=== PATIENT | female | born 1995 | race Hispanic/Latino ===

== ENCOUNTER 2018-01-17 09:56 | Emergency (ER) | payer BC ==
[~2018-01-17 09:56] MED LIST: ESOM20CA31 PO; IBUP-1673 PO
[2018-01-17] MEDS ORDERED: FAMOTIDINE 20MG TAB 20 MG TAB ONE (10:51)
[2018-01-17 11:02] LABS: BASOPHILS % (AUTO) 0.5 % (0.0-5.0); EOSINOPHILS % (AUTO) 0.9 % (0.0-8.0); HEMATOCRIT 35.4 % (36-48); LYMPHOCYTES % (AUTO) 25.4 % (21.0-51.0); MEAN CORPUSCULAR HEMOGLOBIN 29.6 pg (27.0-33.0); MEAN CORPUSCULAR HGB CONC 34.2 g/dL (32.0-36.0); MEAN CORPUSCULAR VOLUME 86.3 fL (79-99); MONOCYTES % (AUTO) 6.1 % (3.0-13.0); NEUTROPHILS % (AUTO) 67.1 % (40.0-77.0); PLATELET COUNT (AUTO) 194 K/uL (130-400); RED CELL DISTRIBUTION WIDTH 13.8 % (11.0-15.5); WHITE BLOOD COUNT (AUTO) 4.8 K/uL (4.8-10.8)
[2018-01-17 11:13] LABS: APPEARANCE,URINE Clear (CLEAR); BILIRUBIN,URINE Negative (NEGATIVE); COLOR,URINE Yellow (YELLOW); GLUCOSE, URINE (UA) Negative (NEGATIVE); KETONES,URINE Negative (NEGATIVE); LEUKOCYTE ESTERASE ,URINE Negative (NEGATIVE); NITRATE,URINE Negative (NEGATIVE); OCCULT BLOOD,URINE Negative (NEGATIVE); PROTEIN,URINE Negative (NEGATIVE)
[2018-01-17 11:17] LABS: CREATININE 0.7 mg/dL (0.5-1.5); POTASSIUM 4.4 mmol/L (3.5-5.1)
[2018-01-17 11:21] LABS: ALBUMIN 3.7 g/dL (3.5-5.0); BILIRUBIN,DIRECT 0.3 mg/dL (0.0-0.3); BILIRUBIN,TOTAL 1.3 mg/dL (0.2-1.0); TOTAL PROTEIN, SERUM 7.1 g/dL (6.0-8.3)
== END 2018-01-17 12:09 | disposition home or self-care (01) ==
LOC: EDH 09:56
DX: O26.891 Other specified pregnancy related conditions, first trimester (principal); R10.13 Epigastric pain; K21.9 Gastro-esophageal reflux disease without esophagitis; Z3A.01 Less than 8 weeks gestation of pregnancy; Z88.1 Allergy status to other antibiotic agents
CPT/HCPCS: 36415; 80048; 80076; 81003; 85025; 86677

== ENCOUNTER 2018-06-27 13:40 | Emergency (ER) | payer BC, MEDICAID ==
[~2018-06-27 13:40] MED LIST changes: +PREN1TAB89 PO
== END 2018-06-27 14:42 | disposition home or self-care (01) ==
LOC: EDH 13:40
DX: G89.29 Other chronic pain (principal); H92.03 Otalgia, bilateral; K21.9 Gastro-esophageal reflux disease without esophagitis; F41.9 Anxiety disorder, unspecified; Z88.1 Allergy status to other antibiotic agents; Z98.890 Other specified postprocedural states
CPT/HCPCS: 99281

== ENCOUNTER 2018-08-25 23:48 | Emergency (ER) | payer BC, MEDICAID ==
[~2018-08-25 23:48] MED LIST changes: -ESOM20CA31 PO; -IBUP-1673 PO
[2018-08-26] MEDS ORDERED: HYDROCODONE/ACETAMINOPHEN 5/325 MG TAB ONE (01:51)
[2018-08-26] MEDS ORDERED: CLINDAMYCIN HCL 150 MG CAP ONE (02:00)
== END 2018-08-26 03:13 | disposition home or self-care (01) ==
LOC: EDH 23:48
DX: Z48.01 Encounter for change or removal of surgical wound dressing (principal); K21.9 Gastro-esophageal reflux disease without esophagitis; Z98.890 Other specified postprocedural states; Z88.1 Allergy status to other antibiotic agents

== ENCOUNTER 2019-07-01 15:20 | Emergency (ER) | payer BC | END 2019-07-01 17:33 | disposition home or self-care (01) | LOC: EDH 15:20 | DX: R42 Dizziness and giddiness (principal); R51 Headache; K21.9 Gastro-esophageal reflux disease without esophagitis; F41.9 Anxiety disorder, unspecified; Z88.1 Allergy status to other antibiotic agents | CPT/HCPCS: 99281 ==

== ENCOUNTER → 2019-10-08 | Outpatient (CLI) | payer BC | END | disposition home or self-care (01) | LOC: RAH 12:38 | PROVIDERS: ATTEND Internal Medicine | DX: R51 Headache (principal) | CPT/HCPCS: 70551 ==

== ENCOUNTER → 2022-06-22 | Outpatient (CLI) | payer BC, OTHER, SELFPAY | END | disposition home or self-care (01) | LOC: RAH 08:57 | PROVIDERS: ATTEND Internal Medicine | DX: R10.13 Epigastric pain (principal); K21.9 Gastro-esophageal reflux disease without esophagitis; R11.2 Nausea with vomiting, unspecified | CPT/HCPCS: 74240 ==

== ENCOUNTER 2024-07-24 02:20 | Emergency (ER) | payer OTHER, SELFPAY ==
[~2024-07-24] VITALS: Ht 152.4 cm; Wt 52.6 kg
[2024-07-24] MEDS: MAG/ALUM/SIMETH 30 ML UDCUP PO ONE (02:56)
[2024-07-24] MEDS: morPHINE 4 MG SYG IVP ONE (02:57)
[2024-07-24] MEDS: DICYCLOMINE HCL 10 MG/5 ML ML PO ONE (02:57)
[2024-07-24] MEDS: LIDOCAINE HCL 2% VISCOUS 15 ML UDCUP PO ONE (02:57)
[2024-07-24] MEDS: LACTATED RINGERS 1000ML 1,000 ML IV ONE (02:57)
[2024-07-24] MEDS: ondanSETRON 4MG INJ IVP ONE (02:57)
[2024-07-24 03:05] VITALS: TEMP 97.8
[2024-07-24 03:09] LABS: ADD UA MICROSCOPIC YES; APPEARANCE,URINE CLEAR (CLEAR); BILIRUBIN,URINE NEGATIVE (NEGATIVE); COLOR,URINE LIGHT-YELLOW (YELLOW); GLUCOSE, URINE (UA) NEGATIVE (NEGATIVE); KETONES,URINE NEGATIVE (NEGATIVE); LEUKOCYTE ESTERASE ,URINE NEGATIVE Leu/uL (NEGATIVE); NITRATE,URINE NEGATIVE (NEGATIVE); OCCULT BLOOD,URINE NEGATIVE (NEGATIVE); PH,URINE 5.5 (5.0-8.0); PROTEIN,URINE 10 mg/dL (NEGATIVE); UROBILINOGEN,URINE 0.2 mg/dL (0.2-1.0)
[2024-07-24 03:16] LABS: MUCUS,URINE RARE LPF (None Seen); SQUAMOUS EPITHELIAL CELL,UR RARE /HPF (0-2)
[2024-07-24 04:14] LABS: BASOPHILS # (AUTO) 0.04 K/uL (0.00-0.20); BASOPHILS % (AUTO) 0.6 % (0.0-5.0); EOSINOPHILS # (AUTO) 0.11 K/uL (0.00-0.70); EOSINOPHILS % (AUTO) 1.7 % (0.0-8.0); HEMATOCRIT 40.7 % (36-48); IMMATURE GRANULOCYTE ABSOLUTE 0.01 K/uL (0-1); LYMPHOCYTES # (AUTO) 2.9 K/uL (1.0-4.8); LYMPHOCYTES % (AUTO) 44.2 % (21.0-51.0); MEAN CORPUSCULAR HEMOGLOBIN 29.4 pg (27.0-33.0); MEAN CORPUSCULAR HGB CONC 32.9 g/dL (32.0-36.0); MEAN CORPUSCULAR VOLUME 89.3 fL (79-99); MONOCYTES # (AUTO) 0.3 K/uL (0.1-1.0); MONOCYTES % (AUTO) 4.8 % (3.0-13.0); NEUTROPHILS # (AUTO) 3.2 K/uL (1.8-7.7); NEUTROPHILS % (AUTO) 48.5 % (40.0-77.0); PLATELET COUNT (AUTO) 197 K/uL (130-400); RED BLOOD CELL COUNT(AUTO) 4.56 MIL/uL (4.00-5.50); WHITE BLOOD COUNT (AUTO) 6.5 K/uL (4.8-10.8)
[2024-07-24 04:27] LABS: CREATININE 0.8 mg/dL (0.5-1.0); POTASSIUM 3.4 mmol/L (3.5-5.1)
[2024-07-24 04:34] LABS: ALBUMIN 3.7 g/dL (3.5-5.0); BILIRUBIN,TOTAL 0.5 mg/dL (0.2-1.0); TOTAL PROTEIN, SERUM 7.4 g/dL (6.0-8.3)
[2024-07-24 04:53] VITALS: BP 121/61; PULSE 67; RESP 18
== END 2024-07-24 05:06 | disposition home or self-care (01) ==
LOC: EDH 02:20
DX: K21.00 Gastro-esophageal reflux disease with esophagitis, without bleeding (principal); Z88.1 Allergy status to other antibiotic agents; Z79.899 Other long term (current) drug therapy
CPT/HCPCS: 99285; 96374; 76705; 96375; 82150; 80053; 83690; 85025; 81001; 81025; 36415; J7120; J2405; J2270